=== PATIENT | male | born 1970 | race Caucasian/White ===

== ENCOUNTER 2023-01-25 13:28 | Emergency (ER) | payer BC ==
[~2023-01-25] VITALS: Ht 182.9 cm; Wt 90.0 kg
[2023-01-25 13:32] VITALS: BP 146/94
[2023-01-25] MEDS ORDERED: ketorolac trometh inj. 60 MG/2 ML VIAL IM ONE (14:25)
[2023-01-25] MEDS ORDERED: DICL100G30 TOP (15:38)
[2023-01-25] MEDS ORDERED: BACL-11 PO (15:38)
[2023-01-25] MEDS ORDERED: IBUP-1986 PO (15:38)
== END 2023-01-25 15:44 | disposition home or self-care (01) ==
LOC: ER 13:28
DX: S40.012A Contusion of left shoulder, initial encounter (principal); S29.012A Strain of muscle and tendon of back wall of thorax, initial encounter; X58.XXXA Exposure to other specified factors, initial encounter; Y93.89 Activity, other specified; Y92.89 Other specified places as the place of occurrence of the external cause; Y99.8 Other external cause status
CPT/HCPCS: 72040; 72070; 96372; 99284; J1885